=== PATIENT | male | born 2000 | race Hispanic/Latino ===

== ENCOUNTER 2020-07-22 17:41 | Emergency (ER) | payer OTHER ==
[~2020-07-22] VITALS: Ht 182.9 cm; Wt 86.4 kg
[2020-07-22 18:41] VITALS: BP 144/68
--- NOTE | 2020-07-22 19:01 | REP ---
INDICATION: trauma to great toe COMPARISON: None. TECHNIQUE: Four views left foot. FINDINGS: There is no evidence of acute fracture, dislocation, or intrinsic bone disease. IMPRESSION: No fracture or dislocation. <Electronically signed by Steven Alarcon > 07/22/20 [id number]
== END 2020-07-22 19:26 | disposition home or self-care (01) ==
LOC: M ED 17:41 → EDBD 17:41 → M ED 19:26
DX: S90.212A Contusion of left great toe with damage to nail, initial encounter (principal); W22.8XXA Striking against or struck by other objects, initial encounter; Y92.89 Other specified places as the place of occurrence of the external cause; Y93.B3 Activity, free weights